=== PATIENT | female | born 1985 | race Caucasian/White ===

== ENCOUNTER 2017-12-12 14:07 | Inpatient (IN) | payer SELFPAY ==
--- NOTE | 2017-12-12 15:13 | EDPHYS ---
Physician Documentation [facility] Name: Jess Carlson Age: 32 yrs Sex: Female : 1985 Arrival Date: 12/12/2017 Time: 14:12 Bed 30 Private MD: None, None ED Physician Livan Joseph HPI: 12/12 15:09 This 32 yrs old Female presents to ER via Wheelchair with complaints of jr8 Abscess, Fever, Nausea. 15:09 The patient presents with an abscess of the buttocks. Description: The affected area is jr8 large, well demarcated, erythematous, fluctuant, hot, raised, swollen, tense, warm. Onset: The symptoms/episode began/occurred gradually, 5 day(s) ago. Possible cause(s): unknown. Associated signs and symptoms: Pertinent positives: fever. Modifying factors: the symptoms are alleviated by nothing, the symptoms are aggravated by walking, pressure, sitting, squeezing the lesion and expressing the contents, touching. Severity of symptoms: At their worst the symptoms were moderate, in the emergency department the symptoms are unchanged. The patient has not experienced similar symptoms in the past. The patient has not recently seen a physician. 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 - Social history:: Smoking status: Patient uses tobacco products, smokes one pack cigarettes per day. ROS: 15:09 Eyes: Negative for injury, pain, redness, and discharge, ENT: Negative for injury, jr8 pain, and discharge, Neck: Negative for injury, pain, and swelling, Cardiovascular: Negative for chest pain, palpitations, and edema, Respiratory: Negative for shortness of breath, cough, wheezing, and pleuritic chest pain, Abdomen/GI: Negative for abdominal pain, nausea, vomiting, diarrhea, and constipation, Back: Negative for injury and pain, MS/Extremity: Negative for injury and deformity, Neuro: Negative for headache, weakness, numbness, tingling, and seizure. 15:09 Skin: Positive for abscess, of the right buttock. Exam: 15:09 Eyes: Pupils equal round and reactive to light, extra-ocular motions intact. Lids and jr8 lashes normal. Conjunctiva and sclera are non-icteric and not injected. Cornea within normal limits. Periorbital areas with no swelling, redness, or edema. ENT: Nares patent. No nasal discharge, no septal abnormalities noted. Tympanic membranes are normal and external auditory canals are clear. Oropharynx with no redness, swelling, or masses, exudates, or evidence of obstruction, uvula midline. Mucous membranes moist. Neck: Trachea midline, no thyromegaly or masses palpated, and no cervical lymphadenopathy. Supple, full range of motion without nuchal rigidity, or vertebral point tenderness. No Meningismus. Cardiovascular: Regular rate and rhythm with a normal S1 and S2. No gallops, murmurs, or rubs. Normal PMI, no JVD. No pulse deficits. Respiratory: Lungs have equal breath sounds bilaterally, clear to auscultation and percussion. No rales, rhonchi or wheezes noted. No increased work of breathing, no retractions or nasal flaring. Abdomen/GI: Soft, non-tender, with normal bowel sounds. No distension or tympany. No guarding or rebound. No evidence of tenderness throughout. Back: No spinal tenderness. No costovertebral tenderness. Full range of motion. MS/ Extremity: Pulses equal, no cyanosis. Neurovascular intact. Full, normal range of motion. Neuro: Awake and alert, GCS 15, oriented to person, place, time, and situation. Cranial nerves II-XII grossly intact. Motor strength 5/5 in all extremities. Sensory grossly intact. Cerebellar exam normal. Normal gait. 15:09 Skin: abscess, that is large, with fluctuance, with induration, with surrounding cellulitis, w/ reactive lymphadenopathy , Large abscess. Approximately 4 inches in diameter with induration extending to about 6 inches . Vital Signs: 14:46 BP 133 / 96; Pulse 129; Resp 19; Temp 98.9; Pulse Ox 98% on R/A; Weight 58.97 kg; aj Height 5 ft. 9 in. (175.26 cm); Pain 10/10; 16:49 BP 112 / 78; Pulse 103; Resp 20; Pulse Ox 100% on R/A; mb3 14:46 Body Mass Index 19.20 (58.97 kg, 175.26 cm) aj MDM: 14:48 Patient medically screened. [facility] 15:09 Data reviewed: vital signs, nurses notes, lab test result(s), and as a result, I will [facility] admit patient. Data interpreted: Pulse oximetry: on room air is 98 %. Interpretation: normal. Counseling: I had a detailed discussion with the patient and/or guardian regarding: the historical points, exam findings, and any diagnostic results supporting the discharge/admit diagnosis, the need for further work-up and treatment in the hospital. 15:10 ED course: Consulted with Dr. Wilburn, will admit for OR drainage, will admit to his rn service as young and otherwise healthy. . 12/12 15:08 Order name: CBC with Diff; Complete Time: 15:58 [facility] 12/12 15:08 Order name: Basic Metabolic Panel; Complete Time: 15:58 [facility] 12/12 15:08 Order name: Blood Culture Adult (2) [facility] 12/12 15:48 Order name: Test, Serum 12/12 16:03 Order name: Urine Dipstick--Ancillary (enter results) 12/12 15:08 Order name: IV; Complete Time: 15:26 [facility] Administered Medications: 15:36 Drug: Promethazine 12.5 mg Route: IVP; Site: left antecubital; mb3 17:18 Follow up: Response: No adverse reaction mb3 15:36 Drug: NS 0.9% 1000 ml Route: IV; Rate: 1000 ml; Site: left antecubital; mb3 15:37 Drug: vancoMYCIN 1 grams Route: IVPB; Infused Over: 2 hrs; Site: left antecubital; mb3 15:37 Drug: Demerol 25 mg Route: IVP; Site: left antecubital; mb3 17:19 Follow up: Response: No adverse reaction; Pain is decreased mb3 16:07 Drug: Zosyn 3.375 grams Route: IVPB; Infused Over: 60 mins; Site: right antecubital; mb3 17:19 Follow up: Response: No adverse reaction; IV Status: Completed infusion; IV Intake: mb3 100ml Disposition: 18:38 Co-signature as Attending Physician, Livan Joseph MD. rn Disposition: 12/12/17 15:13 Hospitalization ordered by Stan Wilburn for Inpatient Admission. Preliminary diagnosis is Cutaneous abscess of buttock. - Bed requested for Telemetry/MedSurg (Inpatient). - Status is Inpatient Admission. mb3 - Condition is Fair. - Problem is new. - Symptoms are unchanged. UTI on Admission? No Signatures: Dispatcher [employer] EDMS Evelyn Vieyra Mayra Justin, RN RN Livan Mosqueda MD MD rn Roszak, Josh, PA PA jr8 Chao Fountain RN RN mb3 Corrections: (The following items were deleted from the chart) 16:58 15:13 Hospitalization Ordered by Stan Wilburn MD for Inpatient Admission. Preliminary bd diagnosis is Cutaneous abscess of buttock. Bed requested for Telemetry/MedSurg (Inpatient). Status is Inpatient Admission. Condition is Fair. Problem is new. Symptoms are unchanged. UTI on Admission? No. jr8 17:28 16:58 12/12/2017 15:13 Hospitalization Ordered by Stan Wilburn MD for Inpatient mb3 Admission. Preliminary diagnosis is Cutaneous abscess of buttock. Bed requested for Telemetry/MedSurg (Inpatient). Status is Inpatient Admission. Condition is Fair. Problem is new. Symptoms are unchanged. UTI on Admission? No. bd
--- NOTE | 2017-12-12 15:13 | ER ---
Nurse's Notes [facility] Name: Jess Carlson Age: 32 yrs Sex: Female : 1985 Arrival Date: 12/12/2017 Time: 14:12 Bed 30 Private MD: None, None Diagnosis: Cutaneous abscess of buttock Presentation: 12/12 14:44 Presenting complaint: Patient states: Large abscess to left posterior hip for 1 week. aj No drainage. Transition of care: patient was not received from another setting of care. Onset of symptoms was December 12, 2017. Care prior to arrival: None. 14:44 Method Of Arrival: Wheelchair aj 14:44 Acuity: KATLIN 3 aj 16:58 Initial Sepsis Screen:. mb3 16:59 Initial Sepsis Screen: Does the patient meet any 2 criteria? No. Patient's initial mb3 sepsis screen is negative. Does the patient have a suspected source of infection? No. Patient's initial sepsis screen is negative. Triage Assessment: 14:46 General: Appears in no apparent distress. uncomfortable, unkempt, Behavior is calm, aj cooperative, appropriate for age. Pain: Complains of pain in right lower back Pain currently is 10 out of 10 on a pain scale. Neuro: No deficits noted. Level of Consciousness is awake, alert, obeys commands, Oriented to person, place, time, situation, Appropriate for age. Respiratory: Airway is patent Respiratory effort is even, unlabored, Respiratory pattern is regular, symmetrical. GI: Reports nausea. Derm: Skin is intact, is healthy with good turgor, Skin is pink, warm \T\ dry. normal, Abscess located on right lower back is Softball sized has no drainage, is red, is raised. 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 - Social history:: Smoking status: Patient uses tobacco products, smokes one pack cigarettes per day. Screenin:56 Abuse screen: Denies threats or abuse. Nutritional screening: No deficits noted. mb3 Tuberculosis screening: No symptoms or risk factors identified. Fall Risk IV access (20 points). Total Bagley Fall Scale indicates No Risk (0-24 pts). Assessment: 15:40 General: Appears uncomfortable, ill, slender, Behavior is cooperative, crying. Pain: mb3 Complains of pain in posterior aspect of right lateral abdomen and anterior aspect of right lateral abdomen Pain currently is 10 out of 10 on a pain scale. Neuro: No deficits noted. Level of Consciousness is awake, alert, obeys commands. Cardiovascular: No deficits noted. Respiratory: No deficits noted. GI: Abdomen is flat, Bowel sounds present X 4 quads. Abd is soft and non tender. : No signs and/or symptoms were reported regarding the genitourinary system. EENT: No signs and/or symptoms were reported regarding the EENT system. Derm: Abscess located on right lower back is greater than 6 inches across is hot to touch, is red, is raised. Vital Signs: 14:46 BP 133 / 96; Pulse 129; Resp 19; Temp 98.9; Pulse Ox 98% on R/A; Weight 58.97 kg; aj Height 5 ft. 9 in. (175.26 cm); Pain 10/10; 16:49 BP 112 / 78; Pulse 103; Resp 20; Pulse Ox 100% on R/A; mb3 14:46 Body Mass Index 19.20 (58.97 kg, 175.26 cm) ED Course: 14:12 Patient arrived in ED. mr 14:12 None, None is Private Physician. mr 14:45 Triage completed. aj 14:46 Arm band placed on right wrist. Patient placed in an exam room. aj 14:48 Stiven Nelson PA is PHCP. jr8 14:48 Livan Joseph MD is Attending Physician. jr8 15:11 Chao Fountain, KANDICE is Primary Nurse. mb3 15:12 Stan Wilburn MD is Hospitalizing Provider. jr8 15:27 Inserted saline lock: 22 gauge in left antecubital area, using aseptic technique. Blood iw collected. 15:50 IV discontinued, intact, bleeding controlled, Pressure dressing applied. mb3 15:50 Missed attempt(s): 22 gauge in left wrist. mb3 15:55 Missed attempt(s): 22 gauge in right wrist. antecubital area. mb3 16:03 Inserted saline lock: 22 gauge in right antecubital area, using aseptic technique. mb3 16:57 Patient has correct armband on for positive identification. Placed in gown. Bed in low mb3 position. Call light in reach. Side rails up X 1. 17:13 No provider procedures requiring assistance completed. Patient admitted, IV remains in mb3 place. Administered Medications: 15:36 Drug: Promethazine 12.5 mg Route: IVP; Site: left antecubital; mb3 17:18 Follow up: Response: No adverse reaction mb3 15:36 Drug: NS 0.9% 1000 ml Route: IV; Rate: 1000 ml; Site: left antecubital; mb3 15:37 Drug: vancoMYCIN 1 grams Route: IVPB; Infused Over: 2 hrs; Site: left antecubital; mb3 15:37 Drug: Demerol 25 mg Route: IVP; Site: left antecubital; mb3 17:19 Follow up: Response: No adverse reaction; Pain is decreased mb3 16:07 Drug: Zosyn 3.375 grams Route: IVPB; Infused Over: 60 mins; Site: right antecubital; mb3 17:19 Follow up: Response: No adverse reaction; IV Status: Completed infusion; IV Intake: mb3 100ml Intake: 17:19 IV: 100ml; Total: 100ml. mb3 Outcome: 15:13 Decision to Hospitalize by Provider. jr8 17:13 Admitted to Med/surg accompanied by tech, via stretcher, room 216, with chart, Report mb3 called to Ba Del Valle RN 17:13 Condition: stable 17:13 Instructed on the need for admit. 17:28 Patient left the ED. mb3 Signatures: Mayra Root, Manuela Goodson RN, Irene, RN RN iw Roszak, Josh, PA PA jr8 Chao Fountain RN RN mb3 Corrections: (The following items were deleted from the chart) 16:10 16:09 Inserted saline lock: 22 gauge in right antecubital area, using aseptic mb3 technique. mb3
[2017-12-12] MEDS ORDERED: PROMETHAZINE 25 MG/ML VIAL ONE (15:15)
[2017-12-12] MEDS ORDERED: MEPERIDINE HCL 25 MG/0.5 ML ONE ×3 (15:15→19:26)
[2017-12-12] MEDS ORDERED: VANCOMYCIN 1 GM/VIAL ONE (15:16)
[2017-12-12] MEDS ORDERED: PIPER/TAZO/NS 3.375gm 3.375 GM/100 ML BAG ONE (15:16)
[2017-12-12] MEDS ORDERED: NA CHLORIDE 0.9% 250 ML ONE (15:16)
[2017-12-12] MEDS ORDERED: NA CHLORIDE 0.9% 1,000 ML ONE (15:16)
[2017-12-12 15:36] LABS: BUN Blood Urea Nitrogen 6 mg/dL (6-20); Bicarbonate 25 mEq/L (21-31); Glucose Level 109 mg/dL (65-120); Potassium 3.2 mEq/L (3.6-5.0); Sodium Level 131 mEq/L (135-145)
[2017-12-12 15:42] LABS: Absolute Lymphocytes (CBC) 1.2 K/uL (0.7-4.9); Absolute Monocytes 1.6 K/uL (0.1-1.3); Absolute Neutrophil 12.4 K/uL (1.8-8.0); Basophils % 0.4 % (0-1.3); Eosinophils % 0.9 % (0-4.4); Hematocrit 35.8 % (36.0-45.0); Lymphocytes % 7.9 % (15.3-44.8); MCH 28.7 pg (27.0-35.0); MCV 87.4 fL (80-100); MPV 8.9 fL (7.6-11.3); Monocytes % 10.4 % (3.3-12.3); RBC Red Blood Cell Count 4.09 M/uL (3.86-4.86)
[2017-12-12] MEDS ORDERED: ACETAMINOPHEN 500 MG TAB PO PRN (17:37)
[2017-12-12] MEDS ORDERED: NA CHLORIDE 0.9% 1,000 ML IV SCH (17:37)
[2017-12-12] MEDS ORDERED: Morphine 2 MG/2 ML SYR IV PRN ×2 (17:37→19:51)
[2017-12-12] MEDS ORDERED: ONDANSETRON 4 MG/2 ML VIAL IV PRN (17:37)
[2017-12-12] MEDS ORDERED: Ringers Lactate 1,000 ML IV ONE (17:58)
--- NOTE | 2017-12-12 18:12 | P.HP ---
Date of Service: 12/12/17 PC: This 32-year-old female presents with an abscess on her right right hip for diagnosis and treatment. HPC: Patient has been having pain and discomfort on her right hip for the last 4-5 days. This area is not swollen, hot to the touch, and very painful. PMH: Denies any prior medical history PSHx: Denies any prior surgeries SOC: No known allergies SYS REVIEW: No cough, wheeze, shortness of breath. No chest pain or palpitations. No urinary complaints O/E awake alert miserable HEENT: Not jaundice Chest: Chest movement equal bilaterally ABD: Soft LOCO: On the right hip there is a large area of inflammatory process measuring approximately 14 cm in size. It is fluctuant. It appears to have for 5 places were is trying to point. Consistent with a large abscess DATA: Elevated white cell count IMPRESSION: Abscess of the right hip PLAN: I will take her to the operating room for incision, drainage, sharp debridement of this abscess. The risks of this procedure have been discussed. The possibility of bleeding, infection, scar formation need for further surgeries was explained.
[2017-12-12] MEDS ORDERED: MIDAZOLAM HCL 2 MG/2 ML INJ ONE (18:16)
[2017-12-12] MEDS ORDERED: FENTANYL CITR 100 MCG/2 ML ONE ×3 (18:16→18:44)
[2017-12-12] MEDS ORDERED: PROPOFOL 200 MG/20 ML VIAL IV ONE (18:16)
[2017-12-12] MEDS ORDERED: KETOROLAC 30 MG/ML INJ ONE (18:37)
[2017-12-12] MEDS ORDERED: DEXAMETHASONE 10 MG/ML VIAL ONE (18:37)
[2017-12-12] MEDS ORDERED: ONDANSETRON HCL 40 MG/20 ML VIAL ONE (18:37)
--- NOTE | 2017-12-12 19:08 | P.OP ---
Preoperative diagnosis: Abscess on the right hip Postoperative diagnosis: The same Primary procedure: Incision, drainage, sharp debridement of large abscess on the right hip Anesthesia: General Estimated blood loss: Less than 10 cc Specimen: 9 9% Operative Technique: The patient brought the operating room placed supine on the table. After the induction of adequate general anesthesia, the area of the right hip was prepped with a Hibiclens solution and draped in usual manner. After just with 0.25% Marcaine, a skin incision was made at the inferior margin of this abscess. The abscess itself measures approximately 14 cm in diameter. There are 5 areas of almost full thickness skin necrosis. A skin incision was made. This brought down through the skin and subcutaneous tissue. A hemostat was used to enter the abscess cavity. The IA power suction was now placed into evacuate approximately 100 cc of thick purulent material with a foul smelling odor. Cultures both aerobic and anaerobic were taken. The abscess cavity was once again inspected using a CT or section breaking down on the loculations inside. 2 Latrice drains were now placed through the inferior portion and brought out through the medial area of full-thickness skin necrosis that had been debrided. This was repeated in 2 other areas leaving it alone 2 drains behind to keep it open and draining during the postoperative period. At this point a sterile dressing was applied. She was stable when sent to the recovery room. Needle sponge instrument count were correct. Complications: None Drain(s): Other ([place] drains x2) Condition: Good
[2017-12-12] MEDS: PIPER/TAZO/NS 3.375gm 3.375 GM/100 ML BAG IVPB SCH (20:57)
[2017-12-12] MEDS: Ringers Lactate 1,000 ML IV SCH (20:57)
[2017-12-13] MEDS: PIPER/TAZO/NS 3.375gm 3.375 GM/100 ML BAG IVPB SCH ×3 (00:52→16:59)
[2017-12-13] MEDS: HYDROCODONE/APAP 7.5/325 MG TAB PO PRN ×3 (00:56→15:29)
[2017-12-13] MEDS ORDERED: VANCOMYCIN 1 GM in NA CHLORIDE 0.9% 500 ML IVPB SCH (03:00)
[2017-12-13] MEDS: Ringers Lactate 1,000 ML IV SCH ×3 (04:21→20:00)
[2017-12-13] MEDS: MORPHINE 4 MG/ML SYR IV PRN ×2 (11:43→18:40)
[2017-12-13] MEDS ORDERED: VANCOMYCIN/NS 1 gm 1 GM/250 ML BAG IV SCH (15:00)
[2017-12-13] MEDS: VANCOMYCIN/NS 1 gm 1 GM/250 ML BAG IV SCH (18:15)
--- NOTE | 2017-12-13 18:15 | P.PN ---
Date of Service: 12/13/17 S.: Patient feels better today. Still not 100%. States she feels cold and shivering tonight. O.: Wound looks remarkably well. Skin is viable. Serosanguineous drainage. A: Much improved since abscess has been drained, however patient, while improved, is still not ready for home. P: I will keep this patient 1 more night. Tomorrow she will be discharged on pain medicine, and oral antibiotics with a followup appointment with me. I have explained to the patient that this is what she can anticipate. She is agreeable to this course of treatment. In the meantime will continue with IV antibiotics, and await pending cultures.
[2017-12-14] MEDS: PIPER/TAZO/NS 3.375gm 3.375 GM/100 ML BAG IVPB SCH ×2 (01:00→09:23)
[2017-12-14] MEDS: HYDROCODONE/APAP 7.5/325 MG TAB PO PRN ×2 (01:48→09:14)
[2017-12-14] MEDS: Ringers Lactate 1,000 ML IV SCH ×2 (04:00→12:00)
[2017-12-14] MEDS: VANCOMYCIN/NS 1 gm 1 GM/250 ML BAG IV SCH (06:42)
[2017-12-14] MEDS ORDERED: Morphine 2 MG/2 ML SYR IV PRN (08:43)
== END 2017-12-14 11:50 | disposition home or self-care (01) | DRG 603 ==
LOC: ER 14:07 → ERHOLD 16:16 → 2ND 17:13
PROVIDERS: ADMIT Surgery; ATTEND Surgery
PROC: 0HDHXZZ Extraction of Right Upper Leg Skin, External Approach (ICD-10-PCS; principal; 2017-12-12 18:30)
DX: L02.415 Cutaneous abscess of right lower limb (principal)
CPT/HCPCS: 36415; 80048; 80202; 84703; 85025; 87040; 87070; 87075; 87205; 96365; 96375; 99285; J1100; J2175; J2250; J2270; J2405; J2543; J2550; J3010; J3370; J7030